=== PATIENT | male | born 1965 | race African-American/Black ===

== ENCOUNTER 2024-08-30 12:02 | Inpatient (IN) | payer OTHER ==
[2024-08-30 12:37] VITALS: BMI 19.9
[2024-08-30] MEDS ORDERED: POLYETHYLENE GLYCOL (HEALTHYLAX) 3350 17 GM PACKET PO PRN (14:43)
[2024-08-30] MEDS ORDERED: MAGNESIUM HYDROX 2400MG/30ML ORAL SUSPENSION 30 ML CUP PO PRN (14:43)
[2024-08-30] MEDS ORDERED: BISMUTH SUBSALICYLATE 524 MG/30 ML PO PRN (14:43)
[2024-08-30] MEDS ORDERED: LOPERAMIDE HCL 2 MG CAPSULE PO PRN (14:43)
[2024-08-30] MEDS ORDERED: MAG HYDROX/AL HYDROX/SIMETH 30 ML UNIT-DOSE CUP PO PRN (14:43)
[2024-08-30] MEDS ORDERED: METHOCARBAMOL 500 MG TABLET PO PRN (14:43)
[2024-08-30] MEDS ORDERED: NICOTINE POLACRILEX 2 MG LOZENGE BC PRN (14:43)
[2024-08-30] MEDS ORDERED: ACETAMINOPHEN 325 MG TABLET (FP) PO PRN (14:43)
[2024-08-30] MEDS ORDERED: IBUPROFEN 400 MG TABLET (FP) PO PRN (14:43)
[2024-08-30] MEDS ORDERED: guaiFENesin 600 MG TABLET.ER (FP) PO PRN (14:43)
[2024-08-30] MEDS ORDERED: BUPRENORPHINE HCL 150 MCG, BUPRENORPHINE HCL 75 MCG BC PRN (14:43)
[2024-08-30] MEDS ORDERED: NICOTINE POLACRILEX 2 MG GUM BUC PRN (14:43)
[2024-08-30] MEDS ORDERED: NALOXONE (NARCAN) HCL 4 MG/0.1 ML SPRAY NS PRN (14:43)
[2024-08-30] MEDS ORDERED: BENZOCAINE/MENTHOL (CHLORASEPTIC ) LOZENGE MM PRN (14:43)
[2024-08-30] MEDS ORDERED: BUPRENORPHINE HCL 75 MCG FILM BC ONE (16:49)
[2024-08-30] MEDS ORDERED: BUPRENORPHINE HCL 150 MCG FILM BC ONE (16:49)
[2024-08-30] MEDS ORDERED: cloNIDine HCL 0.1 MG TABLET ONE (16:50)
[2024-08-30] MEDS: BUPRENORPHINE HCL 150 MCG, BUPRENORPHINE HCL 75 MCG BC ONE (17:01)
[2024-08-30] MEDS: cloNIDine HCL 0.1 MG TABLET PO ONE (17:01)
[2024-08-30] MEDS ORDERED: cloNIDine HCL 0.1 MG TABLET PO PRN (18:44)
[2024-08-30] MEDS: MELATONIN 5 MG TABLETS PO SCH (21:34)
[2024-08-30] MEDS: THIAMINE 100 MG TABLET PO SCH (21:34)
[2024-08-31] MEDS ORDERED: BUPRENORPHINE HCL 150 MCG, BUPRENORPHINE HCL 75 MCG BC PRN
[2024-08-31] MEDS: BENZONATATE 200 MG CAPSULE PO PRN (04:43)
[2024-08-31] MEDS: BUPRENORPHINE HCL 150 MCG, BUPRENORPHINE HCL 75 MCG BC SCH (06:31)
[2024-08-31] MEDS: BICTEGRAV/EMTRICIT/TENOFOV (BIKTARVY) 50-200-25 MG TABLET PO SCH (08:19)
[2024-08-31] MEDS: IBUPROFEN 600 MG TABLET (FP) PO PRN (09:39)
[2024-08-31] MEDS: PRENATAL VITAMINS W/ FOLIC ACID TABLET (FP) PO SCH (09:40)
[2024-08-31 14:51] LABS: HEMATOCRIT 37.6 % (35.4-49); HEMOGLOBIN 12.8 GM/dL (11.7-16.9); MCH 30.7 pg (25.7-33.7); MEAN CELL VOLUME 90.3 fl (80-96); MEAN PLT VOLUME 8.6 fl (7.5-11.1); PLATELET COUNT 309 10^3/uL (134-434); RBC 4.16 M/mm3 (4.00-5.60)
[2024-08-31 14:53] LABS: WHITE BLOOD COUNT 16.9 K/mm3 (4.0-10.0)
[2024-08-31 15:02] LABS: CHLORIDE 102 mmol/L (98-107); POTASSIUM 4.1 mmol/L (3.5-5.1); SODIUM 135 mmol/L (136-145)
[2024-08-31 15:11] LABS: CALCIUM 9.3 mg/dL (8.5-10.1)
[2024-08-31 15:12] LABS: ALBUMIN 2.8 g/dl (3.4-5.0); ANION GAP 5 mmol/L (4-13); CO2 28 mmol/L (21-32); GLUCOSE,RANDOM 114 mg/dL (74-106)
[2024-08-31 15:14] LABS: SGOT/AST 25 U/L (15-37); SGPT/ALT 13 U/L (13-61)
[2024-08-31 15:15] LABS: CREATININE 0.8 mg/dL (0.55-1.3)
[2024-08-31 15:16] LABS: BILIRUBIN,TOTAL 0.4 mg/dL (0.2-1); TOT PROT 8.3 g/dl (6.4-8.2)
[2024-08-31 15:17] LABS: ALK PHOS 74 U/L (45-117)
[2024-08-31] MEDS: diazePAM 5 MG TABLET PO PRN (21:34)
[2024-08-31] MEDS: cloNIDine HCL 0.1 MG TABLET PO PRN (21:34)
[2024-09-01] MEDS: BUPRENORPHINE HCL 450 MCG FILM BC SCH (06:30)
[2024-09-01] MEDS: amLODIPine BESYLATE 2.5 MG TABLET (FP) PO SCH (10:28)
[2024-09-02] MEDS: BUPRENORPHINE/NALOXONE 4 MG/1 MG FILM PACKET SL SCH (06:11)
[2024-09-02] MEDS: ONDANSETRON *ODT* 4 MG TABLET SL PRN (08:51)
[2024-09-02 15:23] LABS: HEMOGLOBIN 13.2 GM/dL (11.7-16.9); MCH 29.8 pg (25.7-33.7); MCHC 33.1 g/dl (32.0-35.9); MEAN CELL VOLUME 89.9 fl (80-96); MEAN PLT VOLUME 7.8 fl (7.5-11.1); PLATELET COUNT 404 10^3/uL (134-434); RBC 4.45 M/mm3 (4.00-5.60); WHITE BLOOD COUNT 8.4 K/mm3 (4.0-10.0)
[2024-09-02 15:47] LABS: ANISOCYTOSIS 0; MACROCYTOSIS 0
[2024-09-02] MEDS: DICYCLOMINE HCL 10 MG CAPSULE PO PRN (17:32)
[2024-09-02] MEDS: hydrOXYzine PAMOATE 25 MG CAPSULE (FP) PO PRN (22:50)
[2024-09-03] MEDS: BUPRENORPHINE/NALOXONE 8 MG/2 MG FILM PACKET SL ONE (06:03)
[2024-09-03 09:16] VITALS: BP 126/86; PULSE 112; RESP 18; TEMP 99.1
[2024-09-03] MEDS: NALOXONE (NYS OPIOID OVERDOSE PROGRAM) 4 MG/0.1 ML SPRAY NS PRN (09:59)
[2024-09-03] MEDS ORDERED: AMOX TR/POT CLAV 875MG/125MG TABLETS (FP) PO SCH (17:30)
== END 2024-09-03 11:01 | disposition home or self-care (01) | DRG 773 ==
LOC: YASAS 12:02 → Y6N 15:38
PROVIDERS: ADMIT Allergy & Immunology; ATTEND Surgery
PROC: HZ2ZZZZ Detoxification Services for Substance Abuse Treatment (ICD-10-PCS; principal; 2024-08-30)
DX: F11.23 Opioid dependence with withdrawal (principal); F10.20 Alcohol dependence, uncomplicated; F17.210 Nicotine dependence, cigarettes, uncomplicated; Z21 Asymptomatic human immunodeficiency virus [HIV] infection status; I10 Essential (primary) hypertension; J18.9 Pneumonia, unspecified organism; Z79.899 Other long term (current) drug therapy
CPT/HCPCS: 0241U-QW; 36415; 71045-TC-FY; 80053; 80305; 80307; 85025; 85027; 86593; 86780; 93005; 93010; Q0162

== ENCOUNTER 2024-09-27 14:46 | Inpatient (IN) | payer OTHER ==
[2024-09-27 15:16] VITALS: BMI 18.6
[2024-09-27] MEDS ORDERED: IBUPROFEN 600 MG TABLET (FP) PO PRN (16:46)
[2024-09-27] MEDS ORDERED: BISMUTH SUBSALICYLATE 524 MG/30 ML PO PRN (16:46)
[2024-09-27] MEDS ORDERED: POLYETHYLENE GLYCOL (HEALTHYLAX) 3350 17 GM PACKET PO PRN (16:46)
[2024-09-27] MEDS ORDERED: ACETAMINOPHEN 325 MG TABLET (FP) PO PRN (16:46)
[2024-09-27] MEDS ORDERED: DICYCLOMINE HCL 10 MG CAPSULE PO PRN (16:46)
[2024-09-27] MEDS ORDERED: NALOXONE (NARCAN) HCL 4 MG/0.1 ML SPRAY NS PRN (16:46)
[2024-09-27] MEDS ORDERED: IBUPROFEN 400 MG TABLET (FP) PO PRN (16:46)
[2024-09-27] MEDS ORDERED: MAGNESIUM HYDROX 2400MG/30ML ORAL SUSPENSION 30 ML CUP PO PRN (16:46)
[2024-09-27] MEDS ORDERED: LOPERAMIDE HCL 2 MG CAPSULE PO PRN (16:46)
[2024-09-27] MEDS ORDERED: NICOTINE POLACRILEX 2 MG LOZENGE BC PRN (16:46)
[2024-09-27] MEDS ORDERED: MAG HYDROX/AL HYDROX/SIMETH 30 ML UNIT-DOSE CUP PO PRN (16:46)
[2024-09-27] MEDS ORDERED: hydrOXYzine PAMOATE 25 MG CAPSULE (FP) PO PRN (16:46)
[2024-09-27] MEDS ORDERED: ONDANSETRON *ODT* 4 MG TABLET SL PRN (16:46)
[2024-09-27] MEDS ORDERED: BENZOCAINE/MENTHOL (CHLORASEPTIC ) LOZENGE MM PRN (16:46)
[2024-09-27] MEDS ORDERED: NICOTINE POLACRILEX 2 MG GUM BUC PRN (16:46)
[2024-09-27] MEDS ORDERED: guaiFENesin 600 MG TABLET.ER (FP) PO PRN (16:46)
[2024-09-27] MEDS: BICTEGRAV/EMTRICIT/TENOFOV (BIKTARVY) 50-200-25 MG TABLET PO SCH (17:46)
[2024-09-27] MEDS: methaDONE HCL 10 MG TABLET PO ONE (17:47)
[2024-09-27] MEDS ORDERED: DOXYCYCLINE HYCLATE 100 MG CAPSULE PO SCH (18:00)
[2024-09-27] MEDS: cloNIDine HCL 0.1 MG TABLET PO SCH (18:37)
[2024-09-27] MEDS: DOXYCYCLINE HYCLATE 100 MG TABLET PO SCH (18:38)
[2024-09-27] MEDS ORDERED: methaDONE HCL 10 MG TABLET PO PRN (18:46)
[2024-09-27] MEDS: BENZONATATE 200 MG CAPSULE PO PRN (22:30)
[2024-09-27] MEDS: THIAMINE 100 MG TABLET PO SCH (22:30)
[2024-09-27] MEDS: MELATONIN 5 MG TABLETS PO SCH (22:31)
[2024-09-28] MEDS: PRENATAL VITAMINS W/ FOLIC ACID TABLET (FP) PO SCH (09:44)
[2024-09-28] MEDS: methaDONE 40 MG, methaDONE 10 MG PO ONE (09:44)
[2024-09-28 11:17] LABS: HEMATOCRIT 38.3 % (35.4-49); MCH 30.6 pg (25.7-33.7); MCHC 33.9 g/dl (32.0-35.9); MEAN CELL VOLUME 90.1 fl (80-96); MEAN PLT VOLUME 7.5 fl (7.5-11.1); PLATELET COUNT 271 10^3/uL (134-434); RBC 4.25 M/mm3 (4.00-5.60); RDW 15.6 % (11.9-15.9); WHITE BLOOD COUNT 6.1 K/mm3 (4.0-10.0)
[2024-09-28 11:25] LABS: CHLORIDE 105 mmol/L (98-107); SODIUM 139 mmol/L (136-145)
[2024-09-28 11:28] LABS: CALCIUM 8.6 mg/dL (8.5-10.1)
[2024-09-28 11:29] LABS: ALBUMIN 2.7 g/dl (3.4-5.0); ANION GAP 5 mmol/L (4-13); CO2 29 mmol/L (21-32); GLUCOSE,RANDOM 130 mg/dL (74-106)
[2024-09-28 11:32] LABS: SGOT/AST 18 U/L (15-37); SGPT/ALT 15 U/L (13-61)
[2024-09-28 11:33] LABS: BILIRUBIN,TOTAL 0.4 mg/dL (0.2-1)
[2024-09-28 11:34] LABS: TOT PROT 7.4 g/dl (6.4-8.2)
[2024-09-28 11:35] LABS: ALK PHOS 81 U/L (45-117)
[2024-09-28] MEDS ORDERED: BICTEGRAV/EMTRICIT/TENOFOV (BIKTARVY) 50-200-25 MG TABLET PO SCH (15:00)
[2024-09-28] MEDS: guaiFENesin 600 MG TABLET.ER (FP) PO ONE (15:11)
[2024-09-29] MEDS ORDERED: cloNIDine HCL 0.1 MG TABLET PO PRN
[2024-09-29] MEDS: methaDONE 40 MG, methaDONE 20 MG PO ONE (09:53)
[2024-09-30] MEDS: guaiFENesin 600 MG TABLET.ER (FP) PO PRN (02:59)
[2024-09-30] MEDS: methaDONE 40 MG, methaDONE 30 MG PO ONE (09:26)
[2024-10-01] MEDS: methaDONE HCL 40 MG DISPERSABLE TABLET PO ONE (09:38)
[2024-10-02] MEDS: methaDONE 80 MG, methaDONE 10 MG PO ONE (09:08)
[2024-10-02] MEDS: METHOCARBAMOL 500 MG TABLET PO PRN (22:37)
[2024-10-03] MEDS: methaDONE 80 MG, methaDONE 10 MG PO SCH (05:48)
[2024-10-03] MEDS ORDERED: methaDONE HCL 10 MG TABLET PO SCH (06:00)
[2024-10-03 09:29] VITALS: BP 136/88; PULSE 84; RESP 17; TEMP 97.7
[2024-10-03] MEDS: NALOXONE (NYS OPIOID OVERDOSE PROGRAM) 4 MG/0.1 ML SPRAY NS PRN (10:27)
== END 2024-10-03 10:28 | disposition home or self-care (01) | DRG 773 ==
LOC: YASAS 14:46 → Y6N 17:00
PROVIDERS: ADMIT Allergy & Immunology; ATTEND Surgery
PROC: HZ2ZZZZ Detoxification Services for Substance Abuse Treatment (ICD-10-PCS; principal; 2024-09-27)
DX: F11.23 Opioid dependence with withdrawal (principal); F14.20 Cocaine dependence, uncomplicated; F17.210 Nicotine dependence, cigarettes, uncomplicated; F19.24 Other psychoactive substance dependence with psychoactive substance-induced mood disorder; F41.9 Anxiety disorder, unspecified; Z21 Asymptomatic human immunodeficiency virus [HIV] infection status; R10.11 Right upper quadrant pain; R05.9 Cough, unspecified; R63.6 Underweight; Z68.1 Body mass index [BMI] 19.9 or less, adult; Z79.899 Other long term (current) drug therapy; Z86.19 Personal history of other infectious and parasitic diseases
CPT/HCPCS: 0241U-QW; 36415; 71046-TC-FY; 80053; 80305; 80307; 85027; 86593; 86780; 87811; 93005; 93010